=== PATIENT | female | born 1995 ===

== ENCOUNTER 2018-12-03 22:19 | Emergency (ER) | payer OTHER ==
[~2018-12-03 22:19] MED LIST: IBU600 PO
--- NOTE | 2018-12-03 22:29 | ER Report ---
History and Physical Time Seen By MD: 22:29 Hx. of Stated Complaint: abdominal pain, possible constipation, burning when having bm. HPI/ROS CHIEF COMPLAINT: Crampy abdominal pain HISTORY OF PRESENT ILLNESS: 23-year-old female presents ambulatory to the ER complaining of several months of pain, worse over the last week. Patient describes intermittent constipation with use of laxatives to induce bowel movements. Patient notes no fever or chills. She denies any blood in stool. She denies history of inflammatory bowel disease. REVIEW OF SYSTEMS: Respiratory: No cough, no dyspnea. Cardiovascular: No chest pain, no palpitations. Gastrointestinal: As above Musculoskeletal: No back pain. Allergies: Coded Allergies: No Known Drug Allergies (Verified , 12/03/18) Home Meds Active Scripts Dicyclomine Hcl (DICYCLOMINE HCL) 10 Mg Capsule, 1-2 CAP PO QID PRN for crampy abdominal pain relief, #40 CAPSULE Prov:MYLES PHILLIP DO 12/04/18 Ondansetron 4 Mg Odt (ONDANSETRON 4 MG ODT) 4 Mg Tab.rapdis, 4 MG PO Q6H PRN for NAUSEA/VOMITING, #12 TAB Prov:MYLES PHILLIP DO 12/04/18 Discontinued Reported Medications Ibuprofen (Motrin) 600 Mg Tab, 600 MG PO Q8H, #30 0 Refills take motrin 600mg every 8 hours. take with food. 10/06/09 Reviewed Nurses Notes: Yes Old Medical Records Reviewed: Yes Constitutional Vital Sign - Last 24 Hours 12/03/18 12/03/18 12/03/18 12/03/18 22:25 22:31 22:34 22:49 Temp 98.0 Pulse 63 66 61 Resp 16 B/P (MAP) 91/68 91/68 (76) Pulse Ox 95 95 94 O2 Delivery Room Air 12/03/18 12/03/18 12/03/18 12/03/18 23:00 23:04 23:19 23:24 Pulse 84 59 68 B/P (MAP) 91/61 (71) Pulse Ox 96 89 91 12/03/18 12/03/18 12/03/18 12/04/18 23:30 23:39 23:54 00:00 Pulse 65 65 B/P (MAP) 87/70 (76) 73/59 (64) Pulse Ox 93 94 12/04/18 00:05 Pulse 62 Pulse Ox 93 Physical Exam General Appearance: The patient is alert, has no immediate need for airway protection and no current signs of toxicity. Vital signs stable, afebrile, pulse ox normal Eyes: Pupils equal and round no injection. Respiratory: Chest is non tender, lungs are clear to auscultation. Cardiac: regular rate and rhythm Gastrointestinal: Abdomen is soft mild left upper quadrant tenderness, no rebound or guarding, no masses, bowel sounds normal. Musculoskeletal: Neck: Neck is supple and non tender. Extremities have full range of motion and are non tender. Skin: No rashes or lesions. DIFFERENTIAL DIAGNOSIS: After history and physical exam differential diagnosis was considered for abdominal pain including but not limited to appendicitis, cholecystitis, gastritis, constipation, IBS, , inflammatory bowel disease and urinary tract infection. Medical Decision Making Data Points Result Diagram: 12/03/18230612/03/18 230 Laboratory Hematology Test 12/03/18 22:27 12/03/18 23:07 Urine Color Yellow Urine Clarity Slightly-cloudy Urine pH 6.0 pH (4.8-9.5) Urine Specific [place] 1.024 Urine Protein Negative mg/dL (NEGATIVE) Urine Glucose (UA) Negative mg/dL (NEGATIVE) Urine Ketones Negative mg/dL (NEGATIVE) Urine Blood Negative (NEGATIVE) Urine Nitrite Negative (NEGATIVE) Urine Bilirubin Negative (NEGATIVE) Urine Urobilinogen Negative mg/dL (0.2-1.9) Urine Leukocyte Esterase Negative (NEGATIVE) Urine RBC 1 /HPF (0-2/HPF) Urine WBC 1 /HPF (0-5/HPF) Urine Squamous Epithelial Cells Many /LPF (</=FEW) Urine Bacteria Negative /HPF (NONE-FEW) Urine Mucus None /HPF (NONE-FEW) Urine HCG, Qualitative Negative (NEGATIVE) Red Blood Count 5.45 M/uL (4.17-5.56) Mean Corpuscular Volume 86.0 fL (80.0-96.0) Mean Corpuscular Hemoglobin 28.4 pg (26.0-33.0) Mean Corpuscular Hemoglobin Concent 33.0 g/dL (32.0-36.0) Red Cell Distribution Width 15.6 % (11.5-14.5) Mean Platelet Volume 8.5 fL (7.2-11.1) Neutrophils (%) (Auto) 46.4 % (39.4-72.5) Lymphocytes (%) (Auto) 41.9 % (17.6-49.6) Monocytes (%) (Auto) 9.0 % (4.1-12.4) Eosinophils (%) (Auto) 1.9 % (0.4-6.7) Basophils (%) (Auto) 0.8 % (0.3-1.4) Nucleated RBC Relative Count (auto) 0.0 /100WBC Neutrophils # (Auto) 2.1 K/uL (2.0-7.4) Lymphocytes # (Auto) 1.9 K/uL (1.3-3.6) Monocytes # (Auto) 0.4 K/uL (0.3-1.0) Eosinophils # (Auto) 0.1 K/uL (0.0-0.5) Basophils # (Auto) 0.0 K/uL (0.0-0.1) Nucleated RBC Absolute Count (auto) 0.00 K/uL Sodium Level 140 mmol/L (137-145) Potassium Level 4.0 mmol/L (3.5-5.0) Chloride Level 102 mmol/L (98-107) Carbon Dioxide Level 28 mmol/L (22-31) Blood Urea Nitrogen 16 mg/dl (7-18) Creatinine 0.90 mg/dl (0.52-1.04) Glomerular Filtration Rate Calc > 60.0 Random Glucose 78 mg/dl (75-110) Calcium Level 10.1 mg/dl (8.4-10.2) Total Bilirubin 0.5 mg/dl (0.2-1.3) Aspartate Amino Transf (AST/SGOT) 36 U/L (0-35) Alanine Aminotransferase (ALT/SGPT) 35 U/L (0-56) Alkaline Phosphatase 69 U/L (0-126) Total Protein 9.1 g/dl (6.3-8.2) Albumin 5.2 g/dl (3.5-5.0) Amylase Level 191 U/L (0-110) Lipase 203 U/L (23-300) Chemistry Test 12/03/18 22:27 12/03/18 23:07 Urine Color Yellow Urine Clarity Slightly-cloudy Urine pH 6.0 pH (4.8-9.5) Urine Specific [place] 1.024 Urine Protein Negative mg/dL (NEGATIVE) Urine Glucose (UA) Negative mg/dL (NEGATIVE) Urine Ketones Negative mg/dL (NEGATIVE) Urine Blood Negative (NEGATIVE) Urine Nitrite Negative (NEGATIVE) Urine Bilirubin Negative (NEGATIVE) Urine Urobilinogen Negative mg/dL (0.2-1.9) Urine Leukocyte Esterase Negative (NEGATIVE) Urine RBC 1 /HPF (0-2/HPF) Urine WBC 1 /HPF (0-5/HPF) Urine Squamous Epithelial Cells Many /LPF (</=FEW) Urine Bacteria Negative /HPF (NONE-FEW) Urine Mucus None /HPF (NONE-FEW) Urine HCG, Qualitative Negative (NEGATIVE) White Blood Count 4.5 k/uL (4.5-11.0) Red Blood Count 5.45 M/uL (4.17-5.56) Hemoglobin 15.5 g/dL (12.0-16.0) Hematocrit 46.9 % (34.0-47.0) Mean Corpuscular Volume 86.0 fL (80.0-96.0) Mean Corpuscular Hemoglobin 28.4 pg (26.0-33.0) Mean Corpuscular Hemoglobin Concent 33.0 g/dL (32.0-36.0) Red Cell Distribution Width 15.6 % (11.5-14.5) Platelet Count 259 K/uL (150-450) Mean Platelet Volume 8.5 fL (7.2-11.1) Neutrophils (%) (Auto) 46.4 % (39.4-72.5) Lymphocytes (%) (Auto) 41.9 % (17.6-49.6) Monocytes (%) (Auto) 9.0 % (4.1-12.4) Eosinophils (%) (Auto) 1.9 % (0.4-6.7) Basophils (%) (Auto) 0.8 % (0.3-1.4) Nucleated RBC Relative Count (auto) 0.0 /100WBC Neutrophils # (Auto) 2.1 K/uL (2.0-7.4) Lymphocytes # (Auto) 1.9 K/uL (1.3-3.6) Monocytes # (Auto) 0.4 K/uL (0.3-1.0) Eosinophils # (Auto) 0.1 K/uL (0.0-0.5) Basophils # (Auto) 0.0 K/uL (0.0-0.1) Nucleated RBC Absolute Count (auto) 0.00 K/uL Glomerular Filtration Rate Calc > 60.0 Calcium Level 10.1 mg/dl (8.4-10.2) Total Bilirubin 0.5 mg/dl (0.2-1.3) Aspartate Amino Transf (AST/SGOT) 36 U/L (0-35) Alanine Aminotransferase (ALT/SGPT) 35 U/L (0-56) Alkaline Phosphatase 69 U/L (0-126) Total Protein 9.1 g/dl (6.3-8.2) Albumin 5.2 g/dl (3.5-5.0) Amylase Level 191 U/L (0-110) Lipase 203 U/L (23-300) Urinalysis Test 12/03/18 22:27 Urine Color Yellow Urine Clarity Slightly-cloudy Urine pH 6.0 pH (4.8-9.5) Urine Specific [place] 1.024 Urine Protein Negative mg/dL (NEGATIVE) Urine Glucose (UA) Negative mg/dL (NEGATIVE) Urine Ketones Negative mg/dL (NEGATIVE) Urine Blood Negative (NEGATIVE) Urine Nitrite Negative (NEGATIVE) Urine Bilirubin Negative (NEGATIVE) Urine Urobilinogen Negative mg/dL (0.2-1.9) Urine Leukocyte Esterase Negative (NEGATIVE) Urine RBC 1 /HPF (0-2/HPF) Urine WBC 1 /HPF (0-5/HPF) Urine Squamous Epithelial Cells Many /LPF (</=FEW) Urine Bacteria Negative /HPF (NONE-FEW) Urine Mucus None /HPF (NONE-FEW) Urine HCG, Qualitative Negative (NEGATIVE) EKG/Imaging Imaging X-ray: KUB was obtained. I viewed the images myself on the PACS system. My interpretation of the images is: Nonspecific bowel gas pattern. The radiologist interpretation had no clinically significant variation from this interpretation. ED Course/Re-evaluation Clinical Indication for ER IV: IV Access ED Course Patient was admitted to an examination room. H&P was done. The differential diagnoses was considered. On clinical examination. Patient has a benign nonsurgical abdominal exam. She's been having some intermittent constipation. She admits to using laxatives frequently. Patient treated with IV fluid, Zofran and Toradol. Diagnostic evaluation shows normal laboratory studies and a urinalysis. Patient advised to conservative treatment plan. She'll be given a trial of dicyclomine control the spasms. She is advised to take MiraLAX daily. Patient was given a prescription for ondansetron. Patient advised to follow-up with primary care in [place] for further evaluation and treatment. Decision to Disposition Date: Dec 04, 2018 Decision to Disposition Time: 00:06 Depart Departure Latest Vital Signs Vital Signs Date Time Temp Pulse Resp B/P (MAP) Pulse Ox O2 Delivery O2 Flow Rate FiO2 12/04/18 00:05 62 93 12/04/18 00:00 73/59 (64) 12/03/18 22:25 98.0 16 Room Air Impression: Primary Impression: Abdominal pain Additional Impression: Constipation Condition: Improved Disposition: HOME OR SELF-CARE New Scripts Dicyclomine Hcl (DICYCLOMINE HCL) 10 Mg Capsule 1-2 CAP PO QID PRN for crampy abdominal pain relief, #40 CAPSULE Prov: MYLES PHILLIP DO 12/04/18 Ondansetron 4 Mg Odt (ONDANSETRON 4 MG ODT) 4 Mg Tab.rapdis 4 MG PO Q6H PRN for NAUSEA/VOMITING, #12 TAB Prov: MYLES PHILLIP DO 12/04/18 Patient Instructions: Irritable Bowel Syndrome (ED) Additional Instructions: Take MiraLAX one capful per day Use a dicyclomine/Bentyl 10-20 mg every 6 hours as needed for crampy abdominal pain relief You can also take ibuprofen 200 mg 3 tablets every 6-8 hours as needed for pain relief Use Zofran/ondansetron every 6 hours as needed for nausea or vomiting control Follow-up with a primary care doctor back in [place] if unimproved in 3-5 days. Problem Qualifiers Primary Impression: Abdominal pain Abdominal location: left upper quadrant Qualified Codes: R10.12 - Left upper quadrant pain Additional Impression: Constipation Constipation type: unspecified constipation type Qualified Codes: K59.00 - Constipation, unspecified MYLES PHILLIP DO Dec 03, 2018 22:29
[2018-12-03] MEDS ORDERED: KETOROLAC 30 MG/ML VIAL IVP ONE (22:40)
[2018-12-03] MEDS ORDERED: ONDANSETRON 4 MG/2 ML VIAL IVP ONE (22:40)
[2018-12-03 23:20] LABS: PLATELET COUNT, AUTOMATED 259 K/uL (150-450)
--- NOTE | 2018-12-03 23:45 | RADIOLOGY IMAGING REPORT ---
FACILITY: [facility] PATIENT NAME: Amy Butterfield : 1995 MR: [id number] V: [id number] EXAM DATE: ORDERING PHYSICIAN: MYLES PHILLIP TECHNOLOGIST: Location: [facility] [place] Patient: Amy Butterfield : 1995 Visit/Account:[id number] Date of Sevice: 12/03/2018 Abdomen: Indication: Abdominal pain. Technique: 2 supine views of the abdomen were obtained. Comparison: None available. Findings: The intestinal gas pattern is unremarkable. There is no evidence of obstruction or focal di latation. No suspicious calcifications are identified. The skeletal and soft tissue structures appear unremarkable. IMPRESSION: No evidence of obstruction. Report Dictated By: Derek Dejesus MD at 12/03/2018 11:39 PM Report E-Signed By: Derek Dejesus MD at 12/03/2018 11:41 PM WSN:[id number]
[2018-12-04] VITALS: BP 73/59
[2018-12-04] MEDS ORDERED: ONDA4TAB9 PO (00:11)
[2018-12-04] MEDS ORDERED: DICY10CA11 PO (00:11)
== END 2018-12-04 00:20 | disposition home or self-care (01) ==
LOC: ER 22:41
DX: R10.12 Left upper quadrant pain (principal); K59.00 Constipation, unspecified
CPT/HCPCS: 74018; 81001; 81025; 82150; 83690; 85025; 96374; 96375; 99284; J1885; J2405; 82040; 82247; 82310; 82374; 82435; 82565; 82947; 84075; 84132; 84155; 84295; 84450; 84460; 84520